=== PATIENT | female | born 1975 | race African-American/Black ===

== ENCOUNTER → 2019-10-19 | Emergency (ER) | payer MEDICAID ==
[~2019-10-19] VITALS: Ht 162.6 cm; Wt 51.3 kg
[2019-10-19 09:40] VITALS: BP 156/90
== END | disposition home or self-care (01) ==
LOC: ER 08:45
DX: H57.12 Ocular pain, left eye (principal); Z53.21 Procedure and treatment not carried out due to patient leaving prior to being seen by health care provider